=== PATIENT | female | born 1995 | race Two or more races ===

== ENCOUNTER 2019-11-05 11:17 | Observation (INO) | payer MEDICAID ==
[~2019-11-05] VITALS: Ht 144.8 cm; Wt 80.7 kg
== END 2019-11-05 13:15 | disposition home or self-care (01) ==
LOC: 8 EST LDRP 11:17
PROVIDERS: ADMIT Obstetrics & Gynecology; ATTEND Obstetrics & Gynecology
DX: O26.893 Other specified pregnancy related conditions, third trimester (principal); R03.0 Elevated blood-pressure reading, without diagnosis of hypertension; Z3A.35 35 weeks gestation of pregnancy
CPT/HCPCS: 99281; G0378

== ENCOUNTER 2021-12-24 23:23 | Emergency (ER) | payer MEDICAID ==
[~2021-12-24] VITALS: Ht 144.8 cm; Wt 74.9 kg
[2021-12-25] MEDS ORDERED: LORAZEPAM 0.5MG TABLET PO ONE (01:00)
[2021-12-25 03:49] VITALS: BP 118/77
== END 2021-12-25 03:50 | disposition home or self-care (01) ==
LOC: ER 23:23
DX: F41.9 Anxiety disorder, unspecified (principal); J06.9 Acute upper respiratory infection, unspecified
CPT/HCPCS: 99283

== ENCOUNTER 2025-05-01 08:41 | Emergency (ER) | payer MEDICAID, OTHER ==
[~2025-05-01] VITALS: Ht 144.8 cm; Wt 76.0 kg
[2025-05-01 08:46] VITALS: O2SAT 98
[2025-05-01 08:55] VITALS: BP 116/77; PULSE 63; RESP 16; TEMP 36.9; O2SAT 99
[2025-05-01 10:10] LABS: BASOPHILS % 0.4 % (0.0-2.0); EOSINOPHILS % 0.3 % (0.0-5.0); HEMATOCRIT. 40.9 % (36.0-48.0); HEMOGLOBIN. 13.5 g/dL (12.0-16.0); LYMPHOCYTES % 26.9 % (20.0-50.0); MEAN PLATELET VOLUME 8.8 fl (7.4-10.4); MONOCYTES % 7.7 % (2.0-8.0); NEUTROPHILS % 64.7 % (40.0-76.0); PLATELET 315 x1000/uL (130-400); RED BLOOD CELL COUNT 4.73 mill/uL (4.2-5.4); RED CELL DISTRIBUTION WIDTH 13.5 % (11.6-14.6)
[2025-05-01 10:27] LABS: HCG SCREEN NEGATIVE
[2025-05-01 10:28] LABS: CREATININE 0.6 mg/dL (0.6-1.0); UREA NITROGEN BLOOD < 5 mg/dL (9-23)
[2025-05-01 10:30] LABS: ASPARTATE AMINOTRANSFERASE 469 IU/L (<34); BILIRUBIN DIRECT 0.4 mg/dL (<=3.0); BILIRUBIN TOTAL 1.1 mg/dL (0.1-1.0); PROTEIN TOTAL 7.2 g/dL (6.0-8.3)
[2025-05-01] MEDS: HYDROCODONE/ACETAMINOPHEN 5/325MG TABLET PO ONE (11:02)
[2025-05-01] MEDS: ONDANSETRON 4MG ODT PO ONE (11:02)
== END 2025-05-01 12:33 | disposition left against medical advice (07) ==
LOC: ER 08:41 → EDBEDREQTM 12:23 → EDBEDREQ 12:23 → CANBEDREQ 12:24 → ER 12:33
DX: R10.13 Epigastric pain (principal); Z79.899 Other long term (current) drug therapy; R74.01 Elevation of levels of liver transaminase levels
CPT/HCPCS: 99284; 74176; 76705; 80076; 80048; 84703; 83690; 85025; 36415; Q0162

== ENCOUNTER 2025-05-01 15:15 | Inpatient (IN) | payer MEDICAID ==
[~2025-05-01] VITALS: Ht 144.8 cm; Wt 72.6 kg
[2025-05-01 15:51] VITALS: O2SAT 98
[2025-05-01 16:38] LABS: BASOPHILS % 0.2 % (0.0-2.0); EOSINOPHILS % 0.3 % (0.0-5.0); HEMATOCRIT. 42.9 % (36.0-48.0); HEMOGLOBIN. 13.6 g/dL (12.0-16.0); LYMPHOCYTES % 25.6 % (20.0-50.0); MEAN PLATELET VOLUME 8.8 fl (7.4-10.4); MONOCYTES % 3.8 % (2.0-8.0); NEUTROPHILS % 70.1 % (40.0-76.0); PLATELET 278 x1000/uL (130-400); RED BLOOD CELL COUNT 4.85 mill/uL (4.2-5.4); RED CELL DISTRIBUTION WIDTH 13.9 % (11.6-14.6)
[2025-05-01] MEDS: ACETAMINOPHEN 325MG TABLET PO ONE (16:43)
[2025-05-01 16:56] LABS: CREATININE 0.6 mg/dL (0.6-1.0); ETHANOL BLOOD < 10 mg/dL (<10); UREA NITROGEN BLOOD < 5 mg/dL (9-23)
[2025-05-01 16:58] LABS: ASPARTATE AMINOTRANSFERASE 301 IU/L (<34); BILIRUBIN DIRECT 0.4 mg/dL (<=3.0); BILIRUBIN TOTAL 1.2 mg/dL (0.1-1.0); HCG SCREEN NEGATIVE; PROTEIN TOTAL 7.4 g/dL (6.0-8.3)
[2025-05-01 17:33] LABS: HEPATITIS A AB IGM NEGATIVE (Negative); HEPATITIS B CORE AB IGM NEGATIVE (Negative)
[2025-05-01 17:34] LABS: HEPATITIS C AB NON REACTIVE (Neg) (Negative)
[2025-05-01] MEDS ORDERED: ACETAMINOPHEN 325MG TABLET PO PRN ×2 (22:15)
[2025-05-01] MEDS ORDERED: MAGNESIUM/ALUMINUM HYDROXIDE/SIMETHICONE 30ML UDC PO PRN (22:15)
[2025-05-01] MEDS ORDERED: MAGNESIUM HYDROXIDE 400MG/5ML 30ML UDC PO PRN (22:15)
[2025-05-01] MEDS ORDERED: ONDANSETRON HCL 4MG/2ML INJ IV PRN (22:15)
[2025-05-01] MEDS ORDERED: KETOROLAC 15MG/ML VIAL IV PRN (22:15)
[2025-05-01] MEDS ORDERED: SODIUM CHLORIDE 0.9% 1,000 ML IV SCH (22:25)
[2025-05-01] MEDS ORDERED: DEXTROSE 50% WATER 50ML SYRINGE IV PRN (22:45)
[2025-05-01] MEDS ORDERED: PANTOPRAZOLE SODIUM 40 MG/VIAL IV SCH (22:45)
[2025-05-02] MEDS: PANTOPRAZOLE SODIUM 40 MG/VIAL IV SCH (00:21)
[2025-05-02] MEDS: DEXT 5%/0.9% NACL 1,000 ML IV SCH (00:21)
[2025-05-02 04:00] VITALS: BP 96/54; PULSE 64; RESP 18; TEMP 35.9; O2SAT 99
[2025-05-02 04:51] VITALS: BP 107/63; PULSE 82; RESP 18; TEMP 36.6404
[2025-05-02 08:00] VITALS: BP 97/60; PULSE 76; RESP 17; TEMP 36.6; O2SAT 98
[2025-05-02] MEDS: LORAZEPAM 0.5MG TABLET PO PRN (08:36)
[2025-05-02 12:00] VITALS: BP 106/57; PULSE 63; RESP 16; TEMP 36.3; O2SAT 98
[2025-05-02 12:05] LABS: CLARITY URINE CLEAR (CLEAR); COLOR URINE DARK YELLOW (YELLOW); GLUCOSE URINE NEGATIVE (NEGATIVE); KETONES URINE NEGATIVE (NEGATIVE); LEUKOCYTE ESTERASE URINE TRACE (NEGATIVE); NITRITE URINE NEGATIVE (NEGATIVE); OCCULT BLOOD URINE NEGATIVE (NEGATIVE); PH URINE 7.5 (4.5-8.0); PROTEIN URINE NEGATIVE (NEGATIVE); SPECIFIC GRAVITY URINE 1.010 (1.005-1.030); UROBILINOGEN URINE 1.0 E.U./dL (0.2-1.0)
[2025-05-02 12:26] LABS: BASOPHILS % 0.4 % (0.0-2.0); EOSINOPHILS % 0.6 % (0.0-5.0); HEMATOCRIT. 42.1 % (36.0-48.0); HEMOGLOBIN. 13.7 g/dL (12.0-16.0); LYMPHOCYTES % 30.6 % (20.0-50.0); MEAN PLATELET VOLUME 8.9 fl (7.4-10.4); MONOCYTES % 7.1 % (2.0-8.0); NEUTROPHILS % 61.3 % (40.0-76.0); PLATELET 334 x1000/uL (130-400); RED BLOOD CELL COUNT 4.83 mill/uL (4.2-5.4); RED CELL DISTRIBUTION WIDTH 13.8 % (11.6-14.6)
[2025-05-02 12:40] LABS: CREATININE 0.6 mg/dL (0.6-1.0); UREA NITROGEN BLOOD < 5 mg/dL (9-23)
[2025-05-02 12:42] LABS: ASPARTATE AMINOTRANSFERASE 401 IU/L (<34); BILIRUBIN DIRECT 1.4 mg/dL (<=3.0); PHOSPHORUS 2.5 mg/dL (2.5-4.9)
[2025-05-02 12:43] LABS: PROTEIN TOTAL 7.7 g/dL (6.0-8.3)
[2025-05-02 12:47] LABS: BILIRUBIN TOTAL 2.5 mg/dL (0.1-1.0)
[2025-05-02 12:57] LABS: SQUAMOUS EPITHELIAL CELL URINE 2+ /lpf (RARE/1+)
[2025-05-02 12:58] LABS: BACTERIA URINE TRACE; RBC URINE 0-2 /hpf (0-2); WBC URINE 0-2 /hpf (0-2)
[2025-05-02 16:00] VITALS: BP 103/55; PULSE 60; RESP 16; TEMP 36; O2SAT 100
[2025-05-02 20:00] VITALS: PULSE 62; RESP 18; TEMP 36.1; O2SAT 100
[2025-05-03] VITALS: BP 94/42; PULSE 53; RESP 20; TEMP 36.3; O2SAT 99
[2025-05-03 04:00] VITALS: PULSE 67; RESP 20; TEMP 36.3; O2SAT 97
[2025-05-03 08:00] VITALS: BP 102/57; PULSE 63; RESP 16; TEMP 36.1; O2SAT 97
[2025-05-03 10:26] LABS: BASOPHILS % 0.5 % (0.0-2.0); EOSINOPHILS % 1.4 % (0.0-5.0); HEMATOCRIT. 39.8 % (36.0-48.0); HEMOGLOBIN. 13.0 g/dL (12.0-16.0); LYMPHOCYTES % 31.1 % (20.0-50.0); MEAN PLATELET VOLUME 9.1 fl (7.4-10.4); MONOCYTES % 5.9 % (2.0-8.0); NEUTROPHILS % 61.1 % (40.0-76.0); PLATELET 302 x1000/uL (130-400); RED BLOOD CELL COUNT 4.62 mill/uL (4.2-5.4); RED CELL DISTRIBUTION WIDTH 13.7 % (11.6-14.6)
[2025-05-03 10:38] LABS: CREATININE 0.6 mg/dL (0.6-1.0)
[2025-05-03 10:39] LABS: UREA NITROGEN BLOOD < 5 mg/dL (9-23)
[2025-05-03 10:40] LABS: ASPARTATE AMINOTRANSFERASE 139 IU/L (<34)
[2025-05-03 10:41] LABS: BILIRUBIN TOTAL 1.2 mg/dL (0.1-1.0); PROTEIN TOTAL 6.5 g/dL (6.0-8.3)
[2025-05-03 12:00] VITALS: BP 100/66; PULSE 74; RESP 17; TEMP 36.1; O2SAT 100
[2025-05-03 16:00] VITALS: BP 102/58; PULSE 74; RESP 17; TEMP 36.6; O2SAT 100
== END 2025-05-03 20:44 | disposition home or self-care (01) ==
LOC: ER 15:15 → EDBEDREQ 17:24 → EDBEDREQTM 17:24 → ENRESERV 22:03 → 7EST 22:28
PROVIDERS: ADMIT Internal Medicine; ATTEND Internal Medicine
DX: K80.20 Calculus of gallbladder without cholecystitis without obstruction (principal); E66.9 Obesity, unspecified; R74.01 Elevation of levels of liver transaminase levels; E80.6 Other disorders of bilirubin metabolism; R73.9 Hyperglycemia, unspecified; N20.0 Calculus of kidney; Z68.34 Body mass index [BMI] 34.0-34.9, adult
CPT/HCPCS: 36415; 74181; 78227; 80048; 80053; 80076; 80320; 81003; 82150; 82247; 83735; 84100; 84703; 85025; 86705; 86709; 87340; 99285; A4606; A9537; J2470; J7042; G0480